=== PATIENT | male | born 1995 | race Caucasian/White ===

== ENCOUNTER 2023-09-29 16:49 | Emergency (ER) | payer SELFPAY ==
[2023-09-29 17:03] VITALS: PULSE 66; TEMP 97.1; O2SAT 99
[2023-09-29 17:36] VITALS: BP 110/79
--- NOTE | 2023-09-29 17:38 | ERPHSYRPT ---
- History of Present Illness Time Seen by Provider: 09/29/23 17:02 Source: patient Exam Limitations: no limitations Patient Subjective Stated Complaint: Pt was hit in the right wrist by a crossbow with 210 lbs of pressure from a crank Triage Nursing Assessment: Pt brought to the ER by his , vitals wnl, rates pain as 7/10, cap refill normal, skin n/w/d, right lateral wrist swollen and red, denies any other injuries Physician History: 28 years old right-handed dominant male presented in the ER after he accidentally got hit on the right wrist with a crossbow at a pressure of 210 pounds from the crank which she was fixing. Patient reports moderate to severe sharp pain in wrist, aggravated with movements at the wrist and fingers. No numbness or tingling distally. Has a superficial skin abrasion. Allergies/Adverse Reactions: No Known Drug Allergies Allergy (Verified 09/29/23 17:03) Hx Tetanus, Diphtheria Vaccination/Date Given: (3 yrs ago) Hx Influenza Vaccination/Date Given: No Hx Pneumococcal Vaccination/Date Given: No Travel Risk - International Travel Have you traveled outside of the country in past 3 weeks: No - Emerging Infectious Disease Are you exhibiting symptoms associated with any current EIDs: No - Review of Systems Constitutional: No Symptoms Respiratory: No Symptoms Cardiac: No Symptoms Musculoskeletal: Injury, Joint Redness, Joint Pain, Joint Swelling Skin: Skin Lesions Neurological: No Symptoms Endocrine: No Symptoms - Past Medical History Pertinent Past Medical History: No - Past Surgical History Past Surgical History: Yes Gastrointestinal: Appendectomy - Social History Smoking Status: Current every day smoker Exposure to second hand smoke: Yes Drug Use: none - Social Determinants of Health Will the patient participate in the screening: Yes Do you worry about a steady place to live?: No Do you have any problems with any of the following?: No known problems In the past 12 months,have you had to go without utilities?: No Transportation Issues: No Has anyone in your support network made you feel unsafe?: No Have you or anyone in your house had to go without enough: No - Nursing Vital Signs Nursing Vital Signs: Initial Vital Signs Temperature 97.1 F 09/29/23 16:55 Pulse Rate 66 09/29/23 16:55 Blood Pressure 114/78 09/29/23 16:55 O2 Sat by Pulse Oximetry 99 09/29/23 16:55 Pain Scale Pain Intensity 7 - Physical Exam General Appearance: no apparent distress, alert Neck Exam: normal inspection, full range of motion Cardiovascular/Respiratory Exam: normal breath sounds, regular rate/rhythm Elbow/Forearm Exam: normal inspection, non-tender, no evidence of injury, normal ROM Wrist Exam: bone tenderness (Distal radius), limited ROM, pain, swelling Hand Exam: normal inspection, non-tender, no evidence of injury, normal ROM Neuro/Tendon Exam: normal sensation, normal motor functions, normal tendon functions Mental Status Exam: alert, oriented x 3, cooperative Skin Exam: normal color SpO2 Interpretation: normal SpO2: 99 O2 Delivery: Room Air Ordered Tests: Active Orders 24 hr Category Date Time Status WRIST (MIN 3 VIEWS) Stat Exams 09/29/23 17:18 Completed Medication Summary Discontinued Medications Generic Name Dose Route Start Last Admin Trade Name Keith PRN Reason Stop Dose Admin Ibuprofen 600 mg 09/29/23 17:29 09/29/23 17:42 Ibuprofen 600 Mg Tablet PO 09/29/23 17:30 600 mg STAT ONE Administration Ibuprofen Confirm 09/29/23 17:42 Ibuprofen 600 Mg Tablet Administered 09/29/23 17:43 Dose 600 mg .ROUTE .STK-MED ONE - Progress Progress: pain not gone completely Progress Note: 09/29/23 17:35 28 years old is evaluated here for injury right wrist with a crossbow at a pressure of 210 pounds prior to arrival. Patient has tenderness in the distal radius. He is offered pain medication but does not want anything but ibuprofen which is given. Distal neurovascular is intact. No ulnar styloid/distal ulnar tenderness. X-rays showed questionable fracture distal radius versus contusion reviewed by me, official report is pending.. Placed in Ortho-Glass sugar-tong by RN with intact distal neurovascular afterwards and outpatient orthopedic follow-up recommended. Discussed signs symptoms of worsening needing return to ER which she seems understanding. 09/29/23 17:37 Counseled pt/family regarding: diagnosis, need for follow-up, rad results Medical Desision Making - Diagnostic Testing Diagnostic test were ordered, analyzed, and reviewed by me: Yes Radiological Interpretation: Interpreted by me, Reviewed by me - Risk of complications The pt has a mod risk of morbidity or mortality based on: Need for prescription drug management - Departure Departure Disposition: Home Clinical Impression: Right wrist injury Condition: Stable Critical Care Time: No Referrals: INO MORALES MD [ACTIVE STAFF] - Follow up/PCP as directed (Call tomorrow for appointment for reevaluation) Instructions: Common Wrist Injuries ED Additional Instructions: Intermittent ice application. Tylenol/ibuprofen as needed. Avoid exertional activities. Follow-up with orthopedics for reevaluation tomorrow. Return to ER for any worsening. Prescriptions: Ibuprofen 600 mg PO Q6HPRN PRN 10 Days #20 tablet PRN Reason: Pain
[2023-09-29] MEDS ORDERED: MOTRIN 600 MG ONE (17:42)
[2023-09-29] MEDS: MOTRIN 600 MG PO ONE (17:42)
--- NOTE | 2023-09-29 21:14 | XRAY ---
Indication: Pain following injury. Comparison: None 3 view right wrist demonstrates normal bones, articulation, and soft tissues for patient's age.
== END 2023-09-29 17:48 | disposition home or self-care (01) ==
LOC: ED 16:49
DX: S69.91XA Unspecified injury of right wrist, hand and finger(s), initial encounter (principal); W20.8XXA Other cause of strike by thrown, projected or falling object, initial encounter; Z72.0 Tobacco use
CPT/HCPCS: 29105; 73110; 99283; A9270-GY

== ENCOUNTER 2023-12-01 22:04 | Emergency (ER) | payer BC ==
[2023-12-01 22:25] VITALS: TEMP 97.9; O2SAT 99
[2023-12-01] MEDS ORDERED: XYLOCAINE VISCOUS 2% 15 ML CUP ONE (22:29)
[2023-12-01] MEDS: XYLOCAINE VISCOUS 2% 15 ML CUP PO ONE (22:53)
--- NOTE | 2023-12-01 23:00 | ERPHSYRPT ---
- History of Present Illness Time Seen by Provider: 12/01/23 22:40 Source: patient Exam Limitations: no limitations Patient Subjective Stated Complaint: right lower back molar broke in half a while back but has been hurting the past three days, don't know how much longer i can take the pain Triage Nursing Assessment: Right lower furthest back molar broken in half. Pt grimacing, holding mouth, appears to be in significant amount of pain. States that he has a dentist appt tomorrow but unable to take the pain one more night as it is unbearable. Physician History: 28yo m presents via private vehicle for tooth pain. Pt reports the pain has been ongoing for several weeks, states he has a cracked right molar that broke off yesterday. Pt reports he has been using orajel at home, taking tylenol/ibuprofen w/o significant relief. Pt reports he has appt w/ dentist tomorrow but states the pain was so bad he could not wait. Pt denies any fevers, reports continued PO intake, denies any drainage from the tooth. Timing/Duration: week(s) (2) Severity: moderate Associated Symptoms: denies symptoms Allergies/Adverse Reactions: No Known Drug Allergies Allergy (Verified 12/01/23 22:16) Home Medications: No Reportable Medications [No Reported Medications] 12/01/23 [History] Hx Tetanus, Diphtheria Vaccination/Date Given: Yes Hx Influenza Vaccination/Date Given: No Hx Pneumococcal Vaccination/Date Given: No Travel Risk - International Travel Have you traveled outside of the country in past 3 weeks: No - Emerging Infectious Disease Are you exhibiting symptoms associated with any current EIDs: No - Review of Systems Constitutional: No Fever, No Chills, No Fatigue Ears, Nose, & Throat: Mouth Pain, Loose Teeth, No Ear Pain, No Hearing Changes, No Nose Congestion, No Mouth Swelling, No Throat Swelling Respiratory: No Symptoms Cardiac: No Symptoms Abdominal/Gastrointestinal: No Symptoms - Past Medical History Pertinent Past Medical History: No - Past Surgical History Past Surgical History: Yes Gastrointestinal: Appendectomy Other Surgical History: 5 teeth cut out in the past - Social History Smoking Status: Former smoker How long have you smoked: 20 Exposure to second hand smoke: Yes Drug Use: none - Social Determinants of Health Will the patient participate in the screening: Yes Do you worry about a steady place to live?: No Do you have any problems with any of the following?: No known problems In the past 12 months,have you had to go without utilities?: No Transportation Issues: No Has anyone in your support network made you feel unsafe?: No Have you or anyone in your house had to go without enough: No - Nursing Vital Signs Nursing Vital Signs: Initial Vital Signs Temperature 97.9 F 12/01/23 22:17 Pulse Rate 65 12/01/23 22:17 Respiratory Rate 18 12/01/23 22:17 Blood Pressure 133/65 12/01/23 22:17 O2 Sat by Pulse Oximetry 99 12/01/23 22:17 Pain Scale Pain Intensity 8 - Physical Exam General Appearance: no apparent distress, alert Ears, Nose, Throat Exam: TMs normal, pharynx normal, other (right posterior molar cracked and broken, nerve exposed, no obvious swelling or abscess ) Respiratory Exam: normal breath sounds, lungs clear, airway intact, No chest tenderness, No respiratory distress Cardiovascular Exam: regular rate/rhythm, normal heart sounds SpO2 Interpretation: normal SpO2: 99 O2 Delivery: Room Air - Course EKG Interpreted by Me: RATE (76), A-fib, Other (minimal peaking of T waves in V2, V3, V4; no significant ST elevations or depression, not suggestive of acute ischemia) Ordered Tests: Medication Summary Discontinued Medications Generic Name Dose Route Start Last Admin Trade Name Keith PRN Reason Stop Dose Admin Ketorolac Tromethamine 30 mg 12/01/23 23:00 12/01/23 23:08 Ketorolac Tromethamine 30 Mg/Ml Inj IM 12/01/23 23:01 30 mg STAT ONE Administration Ketorolac Tromethamine Confirm 12/01/23 23:07 Ketorolac Tromethamine 30 Mg/Ml Inj Administered 12/01/23 23:08 Dose 30 mg .ROUTE .STK-MED ONE Lidocaine HCl Confirm 12/01/23 22:29 Lidocaine Hcl 2% Viscous 15 Ml Udcup Administered 12/01/23 22:30 Dose 15 ml .ROUTE .STK-MED ONE Lidocaine HCl 15 ml 12/01/23 22:39 12/01/23 22:53 Lidocaine Hcl 2% Viscous 15 Ml Udcup PO 12/01/23 22:40 15 ml STAT ONE Administration - Progress Progress: improved Progress Note: 12/01/23 23:15 given viscous lidocaine on cotton ball to place over damaged tooth minimal improvement w/ lidocaine given dose of IM toradol 30mg w/ improvement discharge home w/ dentist follow up tomorrow recommend tylenol, viscous lidocaine cotton balls for pain return to ED if: develop abscess in mouth, develop fevers, become unable to tolerate oral intake Counseled pt/family regarding: diagnosis, need for follow-up Medical Desision Making - Risk of complications Minimal Risk: Minimal risk of morbidity - Departure Departure Disposition: Home Clinical Impression: Tooth pain Condition: Stable Critical Care Time: No Referrals: DOCTOR,NO FAMILY [Primary Care Provider] - Follow up/PCP as directed Additional Instructions: discharge home w/ dentist follow up tomorrow recommend tylenol, viscous lidocaine cotton balls for pain return to ED if: develop abscess in mouth, develop fevers, become unable to tolerate oral intake
[2023-12-01] MEDS ORDERED: TORAdol 30 mg Injection ONE (23:07)
[2023-12-01] MEDS: TORAdol 30 mg Injection IM ONE (23:08)
[2023-12-01 23:28] VITALS: BP 126/89; PULSE 72; RESP 20
== END 2023-12-01 23:27 | disposition home or self-care (01) ==
LOC: ED 22:04
DX: K08.89 Other specified disorders of teeth and supporting structures (principal)
CPT/HCPCS: 96372; 99283; J1885; A9270-GY